=== PATIENT | male | born 2005 | race African-American/Black ===

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

== ENCOUNTER 2024-03-22 22:36 | Emergency (ER) | payer MEDICAID ==
[~2024-03-22] VITALS: Ht 180.3 cm; Wt 68.2 kg
[~2024-03-22 22:36] MED LIST changes: +ATARAX50 MG PO; +PEPTO BISM262 MG/15 PO
[2024-03-22 22:48] VITALS: TEMP 98.5
[2024-03-22] MEDS ORDERED: DOXYCYCLINE 10100 MG PO (22:59)
[2024-03-22] MEDS ORDERED: Doxycycline Monohydrate 100 MG CAP PO ONE (23:00)
[2024-03-22 23:20] VITALS: BP 121/77; PULSE 75
== END 2024-03-22 23:22 | disposition home or self-care (01) ==
LOC: COL.ER 22:36
DX: L03.114 Cellulitis of left upper limb (principal)